=== PATIENT | female | born 1985 | race Asian ===

== ENCOUNTER 2019-09-11 18:58 | Inpatient (IN) | payer BC ==
[~2019-09-11] VITALS: Ht 170.2 cm; Wt 76.9 kg
[2019-09-11 19:08] VITALS: Ht 170.2 cm; Wt 76.9 kg
[2019-09-12 03:10] LABS: CALCIUM 8.4 mg/dL (8.5-10.1); CARBON DIOXIDE 19.8 mmol/L (21-32); CHLORIDE SERUM 103 mmol/L (98-107); CREATININE SERUM 0.8 mg/dL (0.6-1.0); GFR1 > 60 mL/min; GLUCOSE SERUM 218 mg/dL (74-106); POTASSIUM SERUM 3.8 mmol/L (3.5-5.1); RED CELL DISTRIBUTION WIDTH 11.6 % (11.5-14.5); SODIUM SERUM 139 mmol/L (136-145)
[2019-09-12 03:14] LABS: MAGNESIUM 1.9 mg/dL (1.8-2.4); PHOSPHOROUS 3.4 mg/dL (2.5-4.9)
[2019-09-12 03:25] LABS: BASOPHIL % 0.3 % (0-2); PLATELET COUNT 218 x10^3mcL (130-400)
[2019-09-12 03:40] VITALS: BP 139/80
[2019-09-12 06:36] VITALS: BP 115/71
[2019-09-12 07:31] LABS: BASOPHIL % 0.2 % (0-2); PLATELET COUNT 207 x10^3mcL (130-400); RED CELL DISTRIBUTION WIDTH 12.2 % (11.5-14.5)
[2019-09-12 08:20] VITALS: BP 109/68
[2019-09-12 11:45] VITALS: BP 118/65
[2019-09-12 12:57] VITALS: BP 118/65
== END 2019-09-12 14:18 | disposition home or self-care (01) | DRG 563 ==
LOC: ED 18:58 → DU 22:41 → ED 22:41 → DU 09-12 00:36 → EDBEDREQ 09-12 00:37 → DU 09-12 03:03
PROVIDERS: Internal Medicine; ADMIT Internal Medicine
DX: S42.354A Nondisplaced comminuted fracture of shaft of humerus, right arm, initial encounter for closed fracture (principal); S80.02XA Contusion of left knee, initial encounter; L27.1 Localized skin eruption due to drugs and medicaments taken internally; T39.8X5A Adverse effect of other nonopioid analgesics and antipyretics, not elsewhere classified, initial encounter; Y92.238 Other place in hospital as the place of occurrence of the external cause; V43.62XA Car passenger injured in collision with other type car in traffic accident, initial encounter; Y92.414 Local residential or business street as the place of occurrence of the external cause; Z68.28 Body mass index [BMI] 28.0-28.9, adult; Y99.8 Other external cause status
CPT/HCPCS: G0378; J0171; J1200; J1885; J2270; J2405; J2930; J3490; Q0092; Q0162